=== PATIENT | male | born 2000 | race African-American/Black ===

== ENCOUNTER 2022-03-18 22:54 | Emergency (ER) | payer SELFPAY ==
[2022-03-18] VITALS (18 sets, daily range): BP systolic 134–161; BP diastolic 72–94; PULSE 94–214; RESP 13–23; TEMP 36.6; O2SAT 98–100
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
[2022-03-18 23:16] LABS: Abs Immature Grans 0.05 10^3/uL (0.0-0.06); Absolute Basophil Count 0.12 10^3/uL (0.0-0.2); Absolute Eosinophil Count 0.35 10^3/uL (0.0-0.7); Absolute Lymphocyte Count 6.91 10^3/uL (1.2-3.4); Absolute Monocyte Count 1.21 10^3/uL (0.1-0.8); Basophils % 0.7; Eosinophils % 2.1; HCT 45.4 % (40.0-50.0); HGB 15.6 g/dL (13.5-17.5); Immature Grans % 0.3; Lymphocytes % 41.8; MCH 30.2 pg (27.0-33.0); MCHC 34.4 % (32.0-36.0); MCV 88 fL (80-95); MPV 11.7 fL (8.0-11.0); Monocytes % 7.3; Neutrophils % 47.8; Platelet Count 245 10^3/uL (130-400); RBC 5.17 10^6/uL (4.36-5.78); RDW 11.9 % (11.8-14.1); RDW-SD 38.2 fL; WBC 16.53 10^3/uL (4.4-10.8)
[2022-03-18 23:17] LABS: Diff Comment Agrees w/ Instrument
[2022-03-18 23:22] LABS: Lipase 497 U/L (73-393)
[2022-03-18 23:25] LABS: ALT 19 U/L (16-63); AST 18 U/L (15-37); Albumin 4.6 g/dL (3.4-5.0); Alkaline Phosphatase 55 U/L (46-116); Anion Gap 14.5 mmol/L (3-11); BUN 24 mg/dL (7-18); Bilirubin, Total 0.3 mg/dL (0.2-1.0); CO2 25.5 mmol/L (21.0-32.0); CREATININE 1.5 mg/dL (0.70-1.30); Calcium 8.9 mg/dL (8.5-10.1); Chloride 101 mmol/L (98-107); Estimated GFR 67.51 (mL/min/1.73m2); Glucose 124 mg/dL (74-106); Sodium 141 mmol/L (136-145); Total Protein 7.9 g/dL (6.4-8.2)
[2022-03-18] MEDS: Tetanus & Diphtheria Tox,ADULT 0.5 ML VIAL IM (23:25)
[2022-03-18] MEDS: ACETAMINOPHEN 1,000 MG/100 ML BTL 400 MG IVPB (23:25)
[2022-03-18 23:30] LABS: Potassium 2.8 mmol/L (3.5-5.1)
[2022-03-18] MEDS: Omnipaque 350 MG/ML 100 ML BTL IJ (23:35)
[2022-03-18] MEDS: Normal Saline Flush 10 ML SYR IVP (23:36)
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
[2022-03-18] MEDS: ceFAZolin 3,000 MG in Normal Saline 100 ML 200 MG IVPB (23:51)
[2022-03-19] VITALS (11 sets, daily range): BP systolic 128–148; BP diastolic 65–92; PULSE 97–113; RESP 10–24; O2SAT 96–99
[2022-03-19] MEDS: POTASSIUM CHLORIDE 20 MEQ/100 ML BAG 50 MEQ IVPB (00:07)
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
[2022-03-19 00:29] LABS: Bilirubin Negative (Negative); Blood Negative (Negative); Clarity Clear (Clear); Glucose Negative (Negative); Ketones Negative (Negative); Leukocyte Esterase Negative (Negative); Nitrite Negative (Negative); Specific Gravity 1.015 (1.005-1.025); Urobilinogen 0.2 EU/dL (Up TO 0.2); pH 7.5 (5-8)
--- NOTE | 2022-03-19 08:01 | NUR.NOTE ---
accessed patient's chart for Devan Calero. Cesilia was making sure vitals were documented
--- NOTE | 2022-03-19 15:42 | ED.FU.B_ITS ---
Follow Up Plan: Per read from Dr. Alfaro of CT chest abdomen pelvis, there is free fluid in the pelvis which was not noted on the virtual radiology read. Patient was transferred to [facility] from the ED. This discrepancy was passed along to the ED physician office secretary who will contact [facility] and fax the in-house radiology report to [facility].
--- NOTE | 2022-03-19 15:42 | W.ED.FU ---
Follow Up Plan: Per read from Dr. Alfaro of CT chest abdomen pelvis, there is free fluid in the pelvis which was not noted on the virtual radiology read. Patient was transferred to [facility] from the ED. This discrepancy was passed along to the ED front office secretary who will contact [facility] and fax the in-house radiology report to [facility].
== END 2022-03-19 00:30 | disposition short-term general hospital (02) ==
PROVIDERS: Physician Assistant; Emergency Provider Student in an Organized Health Care Education/Training Program
DX: S31.139A Puncture wound of abdominal wall without foreign body, unspecified quadrant without penetration into peritoneal cavity, initial encounter (principal); S51.832A Puncture wound without foreign body of left forearm, initial encounter; E87.6 Hypokalemia; Z23 Encounter for immunization; W34.00XA Accidental discharge from unspecified firearms or gun, initial encounter
CPT/HCPCS: 36415; 74177; 80048; 80053; 83690; 86850; 86900; 86901; 86920; 90471; 96365; 96366; 96367; 96368; 99291; 71260; 73090; 81003; 85025; J0131; J0690; J3480; J3490; P9016